=== PATIENT | male | born 1965 | race Caucasian/White ===

== ENCOUNTER 2019-10-04 20:18 | Emergency (ER) | payer BC ==
--- NOTE | 2019-10-04 21:17 | EDM.PDOC ---
ED HPI GENERAL MEDICAL PROBLEM - General Chief Complaint: Laceration Stated Complaint: CUT UNDER LT THIGH Time Seen by Provider: 10/04/19 21:15 Source of Information: Reports: Patient History Limitations: Reports: No Limitations - History of Present Illness INITIAL COMMENTS - FREE TEXT/NARRATIVE: Patient presents for evaluation of a laceration sustained to the back of the left thigh when he was jumping off of the tailgate of his pickup tonight. He misjudged the spacing and caught his thigh on a piece of sharp metal on the truck tailgate. It did not hurt terribly much at the time but was bleeding briskly. Family looked at it and knew that he would need stitches because it was gapping open. He is up-to-date on tetanus immunization. Onset: Today, Sudden Onset Date: 10/04/19 Location: Reports: Lower Extremity, Left Quality: Reports: Burning Severity: Mild Improves with: Reports: None Worsens with: Reports: Movement Context: Reports: Trauma Associated Symptoms: Reports: No Other Symptoms Left Thigh Pain Score (Numeric/FACES): 5 - Related Data Allergies Allergy/AdvReac Type Severity Reaction Status Date / Time No Known Allergies Allergy Verified 10/04/19 21:25 Home Meds: Home Meds lisinopriL [Lisinopril] 10 mg PO DAILY 10/04/19 [History] ED ROS GENERAL - Review of Systems Review Of Systems: Comprehensive ROS is negative, except as noted in HPI. ED EXAM, SKIN/RASH Exam: See Below Exam Limited By: No Limitations General Appearance: Alert, No Apparent Distress Extremities: Other (There is a roughly 8 cm linear laceration on the posterior, medial, proximal aspect of the left thigh. There is no bleeding at this time. No foreign material was seen.) ED SKIN PROCEDURES - Laceration/Wound Repair Left Upper Posterior Medial Thigh Appearance: Clean Distal NVT: Neuro & Vascular Intact Anesthetic Type: Local Local Anesthesia - Lidocaine (Xylocaine): 1% with EPI Local Anesthetic Volume: 5cc Skin Prep: Saline Saline Irrigation (cc's): 100 Exploration/Debridement/Repair: Wound Explored, No Foreign Material Found Closed with: Sutures Lac/Wound length In cm: 8 Suture Size: 3-0 # of Sutures: 7 Suture Type: Nylon, Interrupted Tetanus Status Addressed: Yes Complications: No Course - Vital Signs Last Recorded V/S: Last Vital Signs Temp 36.3 C 10/04/19 21:26 Pulse 66 10/04/19 21:26 Resp 16 10/04/19 21:26 BP 131/84 10/04/19 21:26 Pulse Ox 97 10/04/19 21:26 - Orders/Labs/Meds Meds: Medications Discontinued Medications Generic Name Dose Route Start Last Admin Trade Name Matilde PRN Reason Stop Dose Admin Bacitracin 1 dose 10/04/19 21:37 10/04/19 21:46 Bacitracin Oint 1 Gm TOP 10/04/19 21:38 1 dose ONETIME ONE Administration Bacitracin Confirm 10/04/19 21:40 10/04/19 21:47 Bacitracin Oint 1 Gm Administered 10/04/19 21:41 Not Given Dose 2 dose .ROUTE .STK-MED ONE Lidocaine/Epinephrine 3 ml 10/04/19 21:45 10/04/19 21:47 Xylocaine 1% With Epinephrine 1:100,000 INFILT 3 ml ASDIRECTED RAQUEL Administration Lidocaine/Epinephrine Confirm 10/04/19 21:40 10/04/19 21:47 Xylocaine 1% With Epinephrine 1:100,000 Administered 10/04/19 21:41 Not Given Dose 50 ml .ROUTE .STK-MED ONE - Re-Assessments/Exams Free Text/Narrative Re-Assessment/Exam: 10/04/19 21:16 The wound will need irrigation and suture closure. It measures approximately 8 cm. 10/05/19 05:00 Wound closure was accomplished as noted elsewhere. Bacitracin and gauze bandage were applied by nursing staff. He should leave this bandage on and keep it dry for the first 3 days. Afterwards, he should put bacitracin along the suture line and cover with a bandage daily until sutures can be removed in 10 to 14 days. Watch for signs of infection such as redness, swelling, pus drainage. Return to ER if any concerns. Departure - Departure Time of Disposition: 22:18 Disposition: Home, Self-Care 01 Clinical Impression: Laceration of thigh Qualifiers: Encounter type: initial encounter Laterality: left Qualified Code(s): S71.112A - Laceration without foreign body, left thigh, initial encounter - Discharge Information Instructions: Laceration Care, Adult Referrals: PCP,None [Primary Care Provider] - Forms: ED Department Discharge Additional Instructions: I recommend he keep the first bandage on and dry for 3 days. After that he can remove it, apply bacitracin ointment along the line of stitches and re-bandage it. Stitches (7 of them) need to remain in for 10 to 14 days. Watch for redness, pain, pus discharge and if noticed, return to this department. No antibiotics were prescribed. If he feels worse in any way, return to ER. Sepsis Event Note (ED) - Focused Exam Vital Signs: Vital Signs Temp Pulse Resp BP Pulse Ox 10/04/19 21:26 36.3 C 66 16 131/84 97 10/04/19 21:06 36.3 C 66 16 131/84 97
[2019-10-04] MEDS ORDERED: Bacitracin Oint 1 GM U/D Packet TOP ONE (21:37)
[2019-10-04] MEDS ORDERED: Lidocaine 1% with EPINEPHrine 1:100,000 50 ML MDV ONE (21:40)
[2019-10-04] MEDS ORDERED: Bacitracin Oint 1 GM U/D Packet ONE (21:40)
[2019-10-04] MEDS ORDERED: Lidocaine 1% with EPINEPHrine 1:100,000 50 ML MDV INFILT SCH (21:45)
== END 2019-10-04 22:30 | disposition home or self-care (01) ==
LOC: JP.ED 20:18
DX: S71.112A Laceration without foreign body, left thigh, initial encounter (principal); Z79.899 Other long term (current) drug therapy; W26.8XXA Contact with other sharp object(s), not elsewhere classified, initial encounter
CPT/HCPCS: 12004; 99282